=== PATIENT | female | born 1990 | race Caucasian/White ===

== ENCOUNTER 2016-08-04 20:48 | Emergency (ER) | payer BC ==
[~2016-08-04] VITALS: Wt 99.8 kg
[~2016-08-04 20:48] MED LIST: 'PARAFON FORTE500 M1 PO; ACETAMINOPHEN-O1 TAB PO; ALBUTEROL0.09 MG/A2 INH; BACTRIM DS 8001 TA1 PO; CELEBREX200 MG PO; CEPHALEXIN500 M1 PO; CLEOCIN150 MG PO; CYCLOBENZAPRINE10 MG PO; CYCLOBENZAPRINE5 M3 PO; CYMBALTA60 MG PO; DICLOFENAC SOD75 MG PO; FLECTOR1.3% TP; FLEXERIL10 MG PO; FLEXERIL5 MG PO; HYDROCODONE BIT1 T11 PO; KEFLEX500 MG PO; LYRICA25 MG PO; MACROBID100 M1 PO; MEDROL DOSEPAK4 MG PO; METICORTEN1 MG PO; MOTRIN800 MG PO; NAPROSYN500 MG PO; NKHM; NORCO 325 MG-51 TAB PO; NORCO 5-325 TA1 EACH PO; Orphenadrine C100 MG PO; PERCOCET 325 MG1 TA2 PO; PERCOCET 325 MG1 TA7 PO; PERCOCET 650 MG1 TAB PO; PREDNICOT20 MG PO; PREDNISONE50 MG PO; PRENATAL1 TA1 PO; PRENATAL1 TA7 PO; PYRIDIUM200 M1 PO; Percocet 325 MG1 TAB PO; VALIUM5 MG PO; VICODIN 5-3001 EACH PO
[2016-08-04] MEDS ORDERED: MEDROL DOSEPAK4 MG PO (21:20)
== END 2016-08-04 21:29 | disposition home or self-care (01) ==
LOC: ED 20:48
DX: M54.16 Radiculopathy, lumbar region (principal); F17.200 Nicotine dependence, unspecified, uncomplicated; Z88.1 Allergy status to other antibiotic agents; Z88.6 Allergy status to analgesic agent

== ENCOUNTER 2016-08-27 13:52 | Emergency (ER) | payer BC, OTHER ==
[~2016-08-27] VITALS: Ht 167.6 cm; Wt 99.8 kg
[2016-08-27] MEDS ORDERED: PRENATAL1 TA3 PO (14:10)
[2016-08-27 14:33] LABS: BASO % 0.2 % (0.0-1.0); EOS # 0.1 10*3/uL (0.0-0.4); HEMATOCRIT 37.3 % (37.0-47.0); HEMOGLOBIN 12.8 g/dl (12.0-16.0); LYMPH # 2.4 10*3/uL (1.3-4.4); LYMPH % 27.1 % (27.0-41.0); MEAN CORPUSCULAR HGB 27.5 pg (27.0-31.0); MEAN CORPUSCULAR HGB CONC 34.3 g/dl (33.0-37.0); MEAN PLATELET VOLUME 11.8 fl (9.6-12.3); MONO # 0.3 10*3/uL (0.1-1.0); MONO % 3.9 % (3.0-9.0); NEUT # 5.8 10*3/uL (2.3-7.9); NEUT % 67.5 % (47.0-73.0); PLATELET COUNT AUTOMATED 182 10*3/uL (130-400); RED BLOOD COUNT 4.66 10*6/uL (4.10-5.10); RED CELL DISTRI WIDTH 14.3 % (0-14.5); WHITE BLOOD COUNT 8.7 10*3/uL (4.8-10.8)
[2016-08-27 14:48] LABS: ALBUMIN 3.4 gm/dl (3.1-4.5); ALKALINE PHOSPHATASE 68 U/L (45-117); BILIRUBIN, TOTAL 0.7 mg/dl (0.2-1.0); BUN 8 mg/dl (7-24); CARBON DIOXIDE 21 mmol/L (21-32); CHLORIDE 103 mmol/L (98-107); EST GLOM FILT AFRICAN AMERICAN > 60 ml/min; GLUCOSE 86 mg/dL (65-99); POTASSIUM 3.5 mmol/L (3.5-5.1); SGOT/AST 6 IU/L (3-35); SGPT/ALT 9 U/L (12-78); SODIUM 139 mmol/L (136-145); TOTAL PROTEIN 6.9 gm/dL (6.4-8.2)
[2016-08-27 14:50] LABS: BILIRUBIN NEGATIVE (NEGATIVE); BLOOD NEGATIVE (NEGATIVE); CLARITY SL CLOUDY (CLEAR); COLOR YELLOW (YELLOW); GLUCOSE NEGATIVE (NEGATIVE); KETONE TRACE (NEGATIVE); LEUKO ESTERASE NEGATIVE (NEGATIVE); NITRITE POSITIVE (NEGATIVE); PROTEIN TRACE (NEGATIVE)
[2016-08-27 15:02] LABS: BACTERIA 3+; URINE REFLEX COMMENT YES (NO)
[2016-08-27] MEDS ORDERED: MACROBID100 M1 PO (16:34)
== END 2016-08-27 16:40 | disposition home or self-care (01) ==
LOC: ED 13:52
PROVIDERS: Physician Assistant
DX: O23.41 Unspecified infection of urinary tract in pregnancy, first trimester (principal); Z88.1 Allergy status to other antibiotic agents; Z88.6 Allergy status to analgesic agent; Z79.899 Other long term (current) drug therapy; Z3A.09 9 weeks gestation of pregnancy

== ENCOUNTER 2016-10-09 22:20 | Emergency (ER) | payer BC, OTHER ==
[~2016-10-09] VITALS: Ht 167.6 cm; Wt 99.8 kg
[~2016-10-09 22:20] MED LIST changes: +PRENATAL1 TA3 PO
[2016-10-09 23:29] LABS: BILIRUBIN NEGATIVE (NEGATIVE); BLOOD NEGATIVE (NEGATIVE); CLARITY SL CLOUDY (CLEAR); COLOR YELLOW (YELLOW); GLUCOSE NEGATIVE (NEGATIVE); KETONE TRACE (NEGATIVE); LEUKO ESTERASE NEGATIVE (NEGATIVE); NITRITE NEGATIVE (NEGATIVE); UROBILINOGEN 0.2 E.U./dl (0.2-1.0)
[2016-10-09 23:35] LABS: BACTERIA TRACE; MUCOUS 1+
[2016-10-09] MEDS ORDERED: MACROBID100 M1 PO (23:47)
== END 2016-10-10 00:03 | disposition home or self-care (01) ==
LOC: ED 22:20
PROVIDERS: Emergency Medicine Emergency Medical Services
DX: O23.92 Unspecified genitourinary tract infection in pregnancy, second trimester (principal); R82.71 Bacteriuria; O99.332 Smoking (tobacco) complicating pregnancy, second trimester; Z3A.20 20 weeks gestation of pregnancy; Z98.890 Other specified postprocedural states; Z88.1 Allergy status to other antibiotic agents; Z88.6 Allergy status to analgesic agent; Z79.899 Other long term (current) drug therapy

== ENCOUNTER → 2016-10-11 | Outpatient (CLI) | payer BC, OTHER | END | disposition home or self-care (01) | LOC: US 13:14 | DX: N93.8 Other specified abnormal uterine and vaginal bleeding (principal) ==

== ENCOUNTER 2017-03-14 07:15 | Emergency (ER) | payer BC, OTHER ==
[~2017-03-14] VITALS: Wt 81.6 kg
[2017-03-14 07:48] LABS: HEMATOCRIT 36.4 % (37.0-47.0); HEMOGLOBIN 12.3 g/dl (12.0-16.0); MEAN CORPUSCULAR HGB CONC 33.8 g/dl (33.0-37.0); MEAN PLATELET VOLUME 11.7 fl (9.6-12.3); PLATELET COUNT AUTOMATED 219 10*3/uL (130-400); RED BLOOD COUNT 4.55 10*6/uL (4.10-5.10); RED CELL DISTRI WIDTH 14.4 % (0-14.5); WHITE BLOOD COUNT 29.8 10*3/uL (4.8-10.8)
[2017-03-14 07:57] LABS: ACT PARTIAL THROMBO TIME 26.7 SECONDS (20.8-31.5)
[2017-03-14 08:04] LABS: TOTAL CELLS COUNTED 100 #CELLS
[2017-03-14 08:05] LABS: PLATELET SUFFICIENCY NORMAL (NORMAL)
[2017-03-14 08:09] LABS: ALBUMIN 2.5 gm/dl (3.1-4.5); ALKALINE PHOSPHATASE 255 U/L (45-117); BUN 10 mg/dl (7-24); CHLORIDE 106 mmol/L (98-107); POTASSIUM 3.6 mmol/L (3.5-5.1); SGOT/AST 10 IU/L (3-35); SGPT/ALT 9 U/L (12-78); SODIUM 140 mmol/L (136-145); TOTAL PROTEIN 6.8 gm/dL (6.4-8.2)
== END 2017-03-14 09:54 | disposition short-term general hospital (02) ==
LOC: ED 07:15
PROVIDERS: Student in an Organized Health Care Education/Training Program
DX: O62.3 Precipitate labor (principal); Z3A.38 38 weeks gestation of pregnancy; Z98.890 Other specified postprocedural states; Z79.899 Other long term (current) drug therapy; Z88.1 Allergy status to other antibiotic agents; Z88.6 Allergy status to analgesic agent

== ENCOUNTER 2017-06-03 11:06 | Emergency (ER) | payer BC, OTHER ==
[~2017-06-03] VITALS: Ht 167.6 cm; Wt 90.7 kg
[2017-06-03] MEDS ORDERED: CLINDAMYCIN HC300 MG PO (11:42)
[2017-06-03] MEDS ORDERED: NAPROSYN500 MG PO (11:42)
== END 2017-06-03 11:43 | disposition admitted as inpatient to this hospital (09) ==
LOC: ED 11:06
DX: K02.9 Dental caries, unspecified (principal); K08.89 Other specified disorders of teeth and supporting structures; F17.200 Nicotine dependence, unspecified, uncomplicated; Z98.890 Other specified postprocedural states; Z79.899 Other long term (current) drug therapy; Z88.1 Allergy status to other antibiotic agents; Z88.6 Allergy status to analgesic agent

== ENCOUNTER 2019-02-17 19:58 | Emergency (ER) | payer OTHER ==
[~2019-02-17] VITALS: Wt 99.8 kg
[~2019-02-17 19:58] MED LIST changes: +CLINDAMYCIN HC300 MG PO
[2019-02-17 20:21] LABS: BILIRUBIN NEGATIVE (NEGATIVE); BLOOD NEGATIVE (NEGATIVE); CLARITY CLEAR (CLEAR); COLOR YELLOW (YELLOW); GLUCOSE NEGATIVE (NEGATIVE); KETONE NEGATIVE (NEGATIVE); LEUKO ESTERASE NEGATIVE (NEGATIVE); NITRITE NEGATIVE (NEGATIVE); SPECIFIC GRAVITY >= 1.030 (1.005-1.030)
[2019-02-17 20:25] LABS: BACTERIA TRACE; EPITHELIAL CELLS 21-30; MUCOUS 1+; WBC 0-2 wbc/hpf (0-5)
== END 2019-02-17 21:33 | disposition home or self-care (01) ==
LOC: ED 19:58
PROVIDERS: Emergency Medicine
DX: O26.891 Other specified pregnancy related conditions, first trimester (principal); R10.9 Unspecified abdominal pain; Z3A.13 13 weeks gestation of pregnancy; Z88.1 Allergy status to other antibiotic agents; Z88.6 Allergy status to analgesic agent; Z79.899 Other long term (current) drug therapy